=== PATIENT | female | born 1985 | race Caucasian/White ===

== ENCOUNTER → 2023-04-27 10:55 | Outpatient (REF) | payer OTHER, SELFPAY | LOC: HWEVLT 10:55 | PROVIDERS: ATTENDING PHYSICIAN Radiology Vascular & Interventional Radiology | DX: I83.893 Varicose veins of bilateral lower extremities with other complications (principal) | CPT/HCPCS: 93970 ==

== ENCOUNTER → 2023-06-16 08:03 | Outpatient (REF) | payer OTHER, SELFPAY | LOC: HWEVLT 08:03 | PROVIDERS: ATTENDING PHYSICIAN Radiology Diagnostic Radiology | DX: I83.892 Varicose veins of left lower extremity with other complications (principal) | CPT/HCPCS: 36478 ==

== ENCOUNTER → 2023-06-29 11:02 | Outpatient (REF) | payer OTHER, SELFPAY | LOC: HWEVLT 11:02 | PROVIDERS: ATTENDING PHYSICIAN Radiology Vascular & Interventional Radiology | DX: I83.892 Varicose veins of left lower extremity with other complications (principal) | CPT/HCPCS: 93971 ==

== ENCOUNTER → 2023-09-19 15:01 | Outpatient (REF) | payer OTHER, SELFPAY | LOC: HWRCS 15:01 | PROVIDERS: ATTENDING PHYSICIAN Nurse Practitioner Adult Health | DX: R07.9 Chest pain, unspecified (principal); R94.31 Abnormal electrocardiogram [ECG] [EKG]; Q67.6 Pectus excavatum | CPT/HCPCS: 93306 ==

== ENCOUNTER → 2023-09-27 13:39 | Outpatient (REF) | payer OTHER, SELFPAY | LOC: HWEVLT 13:39 | PROVIDERS: ATTENDING PHYSICIAN Radiology Diagnostic Radiology | DX: I83.891 Varicose veins of right lower extremity with other complications (principal) | CPT/HCPCS: 36478 ==

== ENCOUNTER → 2023-11-02 09:11 | Outpatient (REF) | payer OTHER, SELFPAY | LOC: HWEVLT 09:11 | PROVIDERS: ATTENDING PHYSICIAN Radiology Vascular & Interventional Radiology | DX: I83.891 Varicose veins of right lower extremity with other complications (principal) | CPT/HCPCS: 93971 ==